=== PATIENT | male | born 1990 | race American Indian/Alaskan Native ===

== ENCOUNTER 2017-11-20 17:16 | Emergency (ER) | payer SELFPAY ==
[2017-11-20 17:45] VITALS: BMI 25.1
[2017-11-20 17:50] VITALS: O2SAT 98
[2017-11-20] MEDS ORDERED: Albuterol 0.083% Inhal Sol (2.5 mg/3 mL) UD IH STA (18:47)
[2017-11-20] MEDS ORDERED: Promethazine/Cod 6.25mg-10mg/5ml Syr UD PO STA (18:47)
--- NOTE | 2017-11-20 18:50 | C.PDOC ---
History Of Present Illness 26 year old male presents to the ED for evaluation of cold symptoms which began 1 week ago. Patient reports associated nasal congestion, runny nose, worsening cough that is productive of clear sputum, and intermittent chest tightness. Patient denies fever, chills, shortness of breath, nausea, vomiting, sick contacts. Time Seen by Provider: 11/20/17 18:13 Chief Complaint (Nursing): Flu-like Symptoms History Per: Patient History/Exam Limitations: no limitations Onset/Duration Of Symptoms: Other (1 week) Current Symptoms Are (Timing): Still Present Associated Symptoms: Cough, Sputum (clear), Nasal Congestion, Other (runny nose ). denies: Fever, Chills, Nausea, Vomiting Additional History Per: Patient Past Medical History Reviewed: Historical Data, Nursing Documentation, Vital Signs Vital Signs: Last Vital Signs Temp 99.5 F 11/20/17 17:49 Pulse 60 11/20/17 17:49 Resp 20 11/20/17 17:49 BP 115/57 L 11/20/17 17:49 Pulse Ox 98 11/20/17 19:03 - Medical History PMH: No Chronic Diseases Surgical History: No Surg Hx Family History: States: Unknown Family Hx - Social History Hx Alcohol Use: No Hx Substance Use: No - Immunization History Hx Tetanus Toxoid Vaccination: No Hx Influenza Vaccination: No Hx Pneumococcal Vaccination: No Review Of Systems Except As Marked, All Systems Reviewed And Found Negative. Constitutional: Negative for: Fever, Chills ENT: Positive for: Nose Discharge, Nose Congestion, Throat Pain. Negative for: Ear Discharge Cardiovascular: Negative for: Chest Pain Respiratory: Positive for: Cough, Other (chest tightness ). Negative for: Shortness of Breath, Wheezing Gastrointestinal: Negative for: Nausea, Vomiting, Abdominal Pain Genitourinary: Negative for: Dysuria Musculoskeletal: Negative for: Neck Pain Skin: Negative for: Rash Neurological: Negative for: Altered Mental Status Physical Exam - Physical Exam Appears: Non-toxic, No Acute Distress, Other (occasional dry cough noted) Skin: Normal Color, Warm, Dry, No Rash Head: Normacephalic Eye(s): bilateral: PERRL Ear(s): Bilateral: Normal Nose: Discharge (copious clear rhinorrhea B/L), Other (post-nasal drip) Oral Mucosa: Moist, No Drooling Tongue: Normal Appearing Lips: Normal Appearing Throat: No Erythema, No Drooling Neck: Trachea Midline, Supple Chest: Symmetrical, No Deformity, No Tenderness Cardiovascular: Rhythm Regular, No Murmur Respiratory: No Decreased Breath Sounds, No Accessory Muscle Use, No Rales, No Rhonchi, No Stridor, Wheezing (scatterd Right base exp wheezes) Gastrointestinal/Abdominal: Soft, No Tenderness, No Distention, No Guarding Extremity: Normal ROM, Capillary Refill (less than 2 seconds ) Neurological/Psych: Oriented x3, Normal Speech, Normal Cognition ED Course And Treatment O2 Sat by Pulse Oximetry: 98 (on RA) Pulse Ox Interpretation: Normal - Radiology CXR: Interpreted by Me, Viewed By Me CXR Interpretation: Yes: No Acute Disease Progress Note: On re-evaluation, pt is afebrile, hemodyamicaly stable, not in any apparent distress. Non-toxic, Tolerate po well in ED. PulsEOx 98% rA. ENT : no acute findings. Neck: Supple, (-) meningeal sign. Lungs: CTA B/L, Bs equal B/L. Abd:benidgn, (-) guarding, (-) rebound. Neuorlogicaly intact. CXR review and appears normal. Pt has clinical findings c/w acute bronchitis. Pt advised. ref. to f/u with PMD in 2-3 days for re-eval. return to ED if any worsening or new changes. Disposition Counseled Patient/Family Regarding: Studies Performed, Diagnosis, Need For Followup, Rx Given - Disposition Referrals: [facility] [Outside] Disposition: HOME/ ROUTINE Disposition Time: 19:18 Condition: STABLE Prescriptions: Albuterol HFA [Ventolin HFA 90 mcg/actuation (8 g)] 1 puff IH Q6 #1 inhaler Azithromycin [Zithromax] 250 mg PO DAILY #4 tab Prednisone [Deltasone] 40 mg PO DAILY #8 tablet Promethazine/Codeine [Phenergan/Codeine Oral Syrup] 10 ml PO TID #90 ml Instructions: Acute Bronchitis (ED) Forms: [employer] (Persian) - Clinical Impression Clinical Impression: Bronchitis - PA / PERSONAL CARE AIDE / Resident Statement MD/DO has reviewed & agrees with the documentation as recorded. - Scribe Statement The provider has reviewed the documentation as recorded by the Scribe (Huong Judd) All medical record entries made by the Scribe were at my direction and personally dictated by me. I have reviewed the chart and agree that the record accurately reflects my personal performance of the history, physical exam, medical decision making, and the department course for this patient. I have also personally directed, reviewed, and agree with the discharge instructions and disposition.
[2017-11-20] MEDS ORDERED: Promethazine/Cod 6.25mg-10mg/5ml Syr UD ONE (19:16)
[2017-11-20] MEDS ORDERED: Albuterol 0.083% Inhal Sol (2.5 mg/3 mL) UD ONE (19:17)
[2017-11-20 20:06] VITALS: BP 101/85; PULSE 88; RESP 16; TEMP 97.8
== END 2017-11-20 20:05 | disposition home or self-care (01) ==
LOC: C.ER 17:16
DX: J40 Bronchitis, not specified as acute or chronic (principal)